=== PATIENT | male | born 1990 | race Caucasian/White ===

== ENCOUNTER 2022-06-26 10:27 | Emergency (ER) | payer MEDICAID ==
[~2022-06-26] VITALS: Ht 180.3 cm; Wt 86.2 kg
[2022-06-26 10:27] VITALS: BP_SYST 129
--- NOTE | 2022-06-26 10:27 | NUR ---
BROUGHT INTO TRIAGE TENT AND TRIAGED. WILL ASSUME CARE
--- NOTE | 2022-06-26 10:30 | NUR ---
PT STATES HE HAS ALL SIGNS OF COVID, HEADACHE, SORE THROAT, FEVERS, BODY ACHES, LOSS OF TASTE/SMELL FOR LAST 3 DAYS. HERE TO GET TESTED FOR COVID
--- NOTE | 2022-06-26 10:33 | NUR ---
DR GRAHAM OUT TO TENT FOR EVALUATION
[2022-06-26] MEDS ORDERED: PHEN-707 PO (10:55)
--- NOTE | 2022-06-26 11:04 | NUR ---
Patient given written and verbal discharge instructions and verbalizes understanding. ER MD discussed with patient the results and treatment provided. Patient in stable condition. ID arm band removed. Rx of COLD MEDICATION given. Patient educated on pain management and to follow up with PMD. Pain Scale 0/10. Opportunity for questions provided and answered. Medication side effect fact sheet provided.
--- NOTE | 2022-06-26 11:32 | NUR ---
Suzi vernon in [facility] - 06/26/22 at [address] GRAHAM TO OUTSIDE TENT FOR EVALUATION
--- NOTE | 2022-06-26 11:32 | NUR ---
Suzi vernon in [facility] - 06/26/22 at [address] GRAHAM TO OUTSIDE TENT FOR EVALUATION
== END 2022-06-26 11:05 | disposition home or self-care (01) ==
LOC: SED 10:27
DX: U07.1 COVID-19 (principal); R05.9 Cough, unspecified; R51.9 Headache, unspecified; J02.9 Acute pharyngitis, unspecified; Z79.899 Other long term (current) drug therapy
CPT/HCPCS: 36415; 99283

== ENCOUNTER 2022-11-07 10:02 | Emergency (ER) | payer MEDICAID ==
[~2022-11-07] VITALS: Ht 180.3 cm; Wt 6.8 kg
[~2022-11-07 10:02] MED LIST: PHEN-707 PO
[2022-11-07 10:17] VITALS: BP_SYST 124
[2022-11-07 10:19] VITALS: BP_SYST 143
[2022-11-07] MEDS ORDERED: NAPR-688 PO (11:46)
== END 2022-11-07 12:07 | disposition home or self-care (01) ==
LOC: SED 10:02
DX: S62.610A Displaced fracture of proximal phalanx of right index finger, initial encounter for closed fracture (principal); Z79.899 Other long term (current) drug therapy; W20.8XXA Other cause of strike by thrown, projected or falling object, initial encounter; Y93.89 Activity, other specified; Y92.89 Other specified places as the place of occurrence of the external cause; Y99.8 Other external cause status
CPT/HCPCS: 99284

== ENCOUNTER 2023-01-31 20:09 | Emergency (ER) | payer MEDICAID ==
[~2023-01-31] VITALS: Ht 180.3 cm; Wt 88.5 kg
[~2023-01-31 20:09] MED LIST changes: +NAPR-688 PO
[2023-01-31 20:18] VITALS: BP_SYST 143; PULSE 106; RESP 20; TEMP 97.2; O2SAT 98
== END 2023-01-31 20:56 | disposition home or self-care (01) ==
LOC: SED 20:09
DX: Z48.00 Encounter for change or removal of nonsurgical wound dressing (principal); Z48.89 Encounter for other specified surgical aftercare; Z79.899 Other long term (current) drug therapy
CPT/HCPCS: 99281

== ENCOUNTER 2023-02-05 06:05 | Emergency (ER) | payer MEDICAID ==
[~2023-02-05] VITALS: Ht 180.3 cm; Wt 88.5 kg
[2023-02-05 06:28] VITALS: BP_SYST 140; PULSE 112; RESP 29; TEMP 98.2; O2SAT 96
[2023-02-05] MEDS ORDERED: MORPHINE 4 MG INJ. 4 MG/ML VIAL IVP ONE ×2 (06:30→08:30)
[2023-02-05] MEDS ORDERED: KETAMINE HCL IN 0.9 % NACL 20 MG in NS 100 ML IV ONE ×2 (06:30)
[2023-02-05] MEDS ORDERED: KETAMINE HCL IN 0.9 % NACL 50 MG/5 ML SYRINGE ONE (06:32)
[2023-02-05 06:35] LABS: BASOPHILS % (AUTO) 0.1 % (0.0-2.0); EOSINOPHILS # (AUTO) 0.1 K/uL (0.0-0.4); EOSINOPHILS % (AUTO) 0.4 % (0.0-4.0); HEMATOCRIT 36.8 % (36-54); HEMOGLOBIN 12.1 g/dL (14.0-18.0); LYMPHOCYTES # (AUTO) 2.1 K/uL (1.0-5.5); LYMPHOCYTES % (AUTO) 10.5 % (20.5-51.5); MEAN CORPUSCULAR HEMOGLOBIN 30 pg (27-31); MEAN CORPUSCULAR HGB CONC 33 % (32-36); MEAN CORPUSCULAR VOLUME 91 fL (79.0-98.0); MONOCYTES % (AUTO) 9.9 % (1.7-9.3); NEUTROPHILS # (AUTO) 15.6 K/uL (1.8-7.7); RED BLOOD CELL COUNT(AUTO) 4.05 MIL/uL (4.2-6.2); RED CELL DISTRIBUTION WIDTH 13.9 % (9.0-15.0); WHITE BLOOD COUNT (AUTO) 19.7 K/uL (4.8-10.8)
[2023-02-05 06:51] LABS: CALCIUM 9.1 mg/dL (8.4-11.0); CREATININE 1.04 mg/dL (0.55-1.30); POTASSIUM 3.8 mmol/L (3.5-5.1)
[2023-02-05 06:55] LABS: TOTAL BILIRUBIN 0.4 mg/dL (0.0-1.0); TOTAL PROTEIN, SERUM 7.9 g/dL (6.4-8.3)
[2023-02-05 07:12] LABS: PLATELET COUNT (AUTO) 774 K/uL (130-430)
[2023-02-05] MEDS ORDERED: PIPERACILLIN/TAZO 3.375 GM in NS 50 ML IV ONE (07:45)
[2023-02-05] MEDS ORDERED: NACL 0.9% 2,000 ML IV ONE (07:45)
[2023-02-05] MEDS ORDERED: PIPERACILLIN/TAZOBACTAM 3.375 GM/VIAL (ZOSYN) IV ONE (07:59)
[2023-02-05 08:04] LABS: NEUTROPHILS % (AUTO) 79.1 % (40.0-70.0)
[2023-02-05 09:46] VITALS: BP_SYST 123; PULSE 108; RESP 20; TEMP 98.9; O2SAT 98
== END 2023-02-05 09:17 | disposition short-term general hospital (02) ==
LOC: SED 06:05
DX: S31.609A Unspecified open wound of abdominal wall, unspecified quadrant with penetration into peritoneal cavity, initial encounter (principal); R10.9 Unspecified abdominal pain; D72.829 Elevated white blood cell count, unspecified; D75.839 Thrombocytosis, unspecified; Z79.899 Other long term (current) drug therapy; W34.00XA Accidental discharge from unspecified firearms or gun, initial encounter; Y93.89 Activity, other specified; Y92.89 Other specified places as the place of occurrence of the external cause; Y99.8 Other external cause status
CPT/HCPCS: 99291; 74176; 96365; 96367; 96375; 80053; 83690; 85025; 87040; 36415; 76376; 96376; 83605; J2543; J2270